=== PATIENT | male | born 1955 | race Caucasian/White ===

== ENCOUNTER 2017-10-07 06:53 | Observation (INO) | payer OTHER ==
[~2017-10-07] VITALS: Ht 185.4 cm; Wt 81.6 kg
--- NOTE | ~2017-10-07 | CATHLAB ---
[facility] [place] [address] INVASIVE PROCEDURE REPORT Name: ILA MORENO Room #: 202-P [facility] IN M.R.#: [id number] Admission: 10/07/17 Attend Phys: Cornel Fernandes, Discharge: 10/08/17 Date of : 51 Date of Service: 10/08/17 1719 Report #: [id number] THIS REPORT FOR: //name// APPROVED REPORT Study performed: 10/07/2017 07:31:46 Patient Details Patient Status: Out-Patient Room #: The patient is a 62 year-old male Event Personnel Cornel Fernandes Spout Tender, Ial Hollis Mahmood, Amber Monitor, Juan Quiroz RN Procedures Performed Art Access - R femoral artery* 74487 Initial Mod Sed Same Phys/QHP Gr5y 645851 88436 Mod Sed Same Phys/QHP Ea 680512 Left Heart Cath w/or w/o Coronaries [id number] [facility] Aortogram Abdominal Peripheral Angio 408172 JESUS Place w/wo Plasty Single LAD 317985 Hemostasis w/ Mynx Indication Positive stress test, Chest pain Procedure Narrative The patient was brought electively to the Cardiac Catheterization Laboratory and was prepped and draped in a sterile manner. The Right Groin^ was infiltrated with 1% Lidocaine subcutaneous anesthesia. A PINNACLE 6FR Sheath #[id number] sheath was inserted into the right femoral artery. Coronary angiography was performed using coronary diagnostic catheters. The right coronary system was accessed and visualized with a JR 4 catheter. The left coronary system was accessed and visualized with a JL 4 catheter. The left ventricle was accessed and visualized with a Pigtail catheter. Left ventriculogram was performed in SANTOYO projection. An aortogram of the abdominal aorta was performed. Closure device was deployed with a 6 Fr Mynx. The patient tolerated the procedure well and there were no complications associated with the procedure. There was no hematoma. Intraoperative Conscious Sedation Sedation start time: 08:14 Case end Time: 09:10 Fentanyl 100 mcg Versed 2 [address] [address] INVASIVE PROCEDURE REPORT Name: ILA MORENO Room #: 202-P [facility]..#: [id number] Admission: 10/07/17 Attend Phys: Cornel Fernandes, Discharge: 10/08/17 Date of : 51 Date of Service: 10/08/17 1719 Report #: [id number] Fluoro Time: 11.36 minutes Dose: DAP 9971.80 cGycm2 1313 mGy Contrast Type and Amount: Omnipaque 225 ml Hemodynamics The aortic pressure is 124/69 mmHg with a mean of 81 mmHg. The left ventricular pressure is 112/9 mmHg with a mean of mmHg. The left ventricular end diastolic pressure is 22 mmHg. PCI Technique Lesion Percutaneous coronary intervention was performed on the mid left anterior descending artery segment. A LAUNCHER 6FR EBU 4 #[id number] Guide Catheter was used to engage the ostium. A Luge Wire .014 x 182CM #[id number] Interventional Guidewire was used to cross the lesion. BALLOON DILATION A Balloon catheter Sprinter OTW 2.75 x 12 #[id number] was inserted and inflated up to 6.00atm for 30seconds. Additional Inflation: 8.00atm for 16seconds. Additional Inflation: 8.00atm for 28seconds. STENT DEPLOYMENT A drug-eluting stent RESOLUTE OTW 3.0 X 18 #[id number] was inserted and inflated up to 16.00atm for 44seconds. POST STENT DEPLOYMENT BALLOON DILATION A Balloon catheter TREK NC RX 3.25 X 15 #[id number] was inserted and inflated up to 18.00atm for 26seconds. Conclusion #1 successful PTCA stent of the proximal LAD subtotal lesion with RONIT grade one flow to RONIT grade 3 placement of a 30 by 18 resolute drug-eluting stent postdilated 3.3 mm in size RONIT-3 flow. (After initial deployment was some residual clot formation postdilated with noncompliant balloon no apparent residual clot) heparin and Integrilin were utilized for anticoagulation #2 left main free of disease giving rise to LAD and circumflex #3 circumflex OM is nondominant with minimal irregularity. Moderate in size #4 dominant RCA minimal disease or is providing collateral filling to the LAD prior to the LAD intervention. #5 normal left ventricular size with subtle anterior apical wall leg EF 50% #6 abdominal aorta is intact without evidence of aneurysm minimal plaquing and mild tortuosity is noted renal arteries and iliac system [facility] [address] [place] [address] INVASIVE PROCEDURE REPORT Name: ILA MORENO Room #: 202-P [facility] IN M.R.#: [id number] Admission: 10/07/17 Attend Phys: Cornel Fernandes, Discharge: 10/08/17 Date of : 51 Date of Service: 10/08/171718 Report #: [id number] widely patent Recommendations and plan: We'll proceed to the CCU patient is able medically stable and pain-free. Integrilin drip will be maintained. Although no evidence of residual clot after postdilatation with noncompliant balloon. Hemodynamically stable. Proceed to CCU follow stent protocol dual antiplatelet therapy at least one year. No MRI or dental work for 3 months <ELECTRONICALLY SIGNED> By: Cornel Fernandes MD, [facility] WITH [facility] 10/08/171718 18 18 Cornel Fernandes MD, FACC /INF
--- NOTE | ~2017-10-07 | EKG ---
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 : 1955 Requested By: Cornel Fernandes Order Number: [id number] MD: Jose M Meredith Measurements Intervals [place] Rate: 60 P: 32 MS: 207 QRS: 14 QRSD: 98 T: 60 QT: 432 QTc: 432 Interpretive Statements Sinus rhythm Abnrm T, consider ischemia, anterolateral lds Compared to ECG 10/07/2017 13:55:04 T-wave abnormality is more pronounced Electronically Signed On 10-08-2017 8:18:31 CDT by Jose M Meredith [email or web address] <ELECTRONICALLY SIGNED> By: Jose M Meredith MD, [facility] 10/08/17817 1 1 Jose M Meredith MD, [facility] /EPI
--- NOTE | ~2017-10-07 | EKG ---
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 : 1955 Requested By: Cornel Fernandes Order Number: [id number] MD: Jose M Meredith Measurements Intervals [place] Rate: 64 P: -5 OK: 209 QRS: -1 QRSD: 92 T: 46 QT: 432 QTc: 446 Interpretive Statements Sinus rhythm Abnormal T, consider ischemia, anterior leads No previous ECG available for comparison Electronically Signed On 10-07-2017 17:22:27 CDT by Jose M Meredith [email or web address] <ELECTRONICALLY SIGNED> By: Jose M Meredith MD, [facility] 10/07/17 1722 1355 1355 Jose M Meredith MD, [facility] /EPI
[2017-10-07 07:10] VITALS: BP 117/82
[2017-10-07] MEDS ORDERED: ALTACE10 MG PO (07:29)
[2017-10-07] MEDS ORDERED: LIVALO4 MG PO (07:29)
[2017-10-07] MEDS ORDERED: ASPIRIN325 PO (07:30)
[2017-10-07] MEDS ORDERED: ACETYL L-CARNI500 MG PO (07:31)
[2017-10-07] MEDS ORDERED: ALPHA LIPOIC A300 MG PO (07:32)
[2017-10-07] MEDS ORDERED: VITAMIN D2000 UNIT PO (07:33)
[2017-10-07] MEDS ORDERED: COQ-10100 MG PO (07:34)
[2017-10-07] MEDS ORDERED: FISH OIL 1,001000 M2 PO (07:34)
[2017-10-07] MEDS ORDERED: VITAMIN B-12500 MCG PO (07:35)
[2017-10-07 07:40] LABS: HEMOGLOBIN 14.9 gm/dL (14.0-18.0); MCHC 35.5 g/dL (28.0-37.0); MCV 90.2 fL (80.0-100.0); RBC 4.66 mil/uL (4.50-6.00); RDW 12.1 % (10.5-14.5)
[2017-10-07 07:49] LABS: CALCIUM 8.4 mg/dL (8.5-10.1)
[2017-10-07 12:06] VITALS: BP 123/72
[2017-10-07 15:18] VITALS: BP 100/73
[2017-10-07 19:08] VITALS: BP 109/78
[2017-10-08 04:19] VITALS: BP 111/76
[2017-10-08 04:39] LABS: CALCIUM 8.2 mg/dL (8.5-10.1); CREATININE 0.7 mg/dL (0.7-1.3); POTASSIUM 3.7 mmol/L (3.5-5.1)
[2017-10-08 04:45] LABS: TROPONIN-I 0.94 ng/mL (<0.06)
[2017-10-08 05:44] LABS: HEMATOCRIT 39.9 % (42.0-52.0); HEMOGLOBIN 13.8 gm/dL (14.0-18.0); MCH 31.9 pg (26.0-34.0); MCHC 34.6 g/dL (28.0-37.0); MCV 92.1 fL (80.0-100.0); RBC 4.33 mil/uL (4.50-6.00); RDW 12.6 % (10.5-14.5); WBC 5.5 thou/uL (4.0-11.0)
[2017-10-08] MEDS ORDERED: EFFIENT10 MG PO (07:36)
[2017-10-08] MEDS ORDERED: ASPIRIN325 PO (07:36)
[2017-10-08] MEDS ORDERED: METOPROLOL SUCC25 M1 PO (07:39)
[2017-10-08 08:36] VITALS: BP 112/69
[2017-10-08 08:39] VITALS: BP 112/69
== END 2017-10-08 09:15 | disposition home or self-care (01) ==
LOC: CATH 06:53 → 2N 12:14 → ENTRNSPT 10-08 08:50 → EDTRNSPTSTS 10-08 08:52 → 2N 10-08 09:15
PROVIDERS: Internal Medicine Cardiovascular Disease
DX: I25.10 Atherosclerotic heart disease of native coronary artery without angina pectoris (principal); I10 Essential (primary) hypertension; E78.5 Hyperlipidemia, unspecified; Z95.5 Presence of coronary angioplasty implant and graft; Z95.2 Presence of prosthetic heart valve

== ENCOUNTER → 2019-08-16 | Outpatient (CLI) | payer OTHER ==
[~2019-08-16] MED LIST: ACETYL L-CARNI500 MG PO; ALPHA LIPOIC A300 MG PO; ALTACE10 MG PO; ASPIRIN325 PO; COQ-10100 MG PO; EFFIENT10 MG PO; FISH OIL 1,001000 M2 PO; LIVALO4 MG PO; METOPROLOL SUCC25 M1 PO; VITAMIN B-12500 MCG PO; VITAMIN D2000 UNIT PO
== END ==
LOC: SJCVC 16:17
DX: I45.10 Unspecified right bundle-branch block (principal); R94.31 Abnormal electrocardiogram [ECG] [EKG]; I25.10 Atherosclerotic heart disease of native coronary artery without angina pectoris; I48.92 Unspecified atrial flutter; R00.0 Tachycardia, unspecified; I10 Essential (primary) hypertension; E78.00 Pure hypercholesterolemia, unspecified; Z98.890 Other specified postprocedural states; Z82.49 Family history of ischemic heart disease and other diseases of the circulatory system; Z79.899 Other long term (current) drug therapy

== ENCOUNTER → 2019-09-06 | Outpatient (CLI) | payer OTHER | LOC: SJCVCIMAG 09:39 | DX: I08.3 Combined rheumatic disorders of mitral, aortic and tricuspid valves (principal); I25.10 Atherosclerotic heart disease of native coronary artery without angina pectoris; I48.92 Unspecified atrial flutter; I47.1 Supraventricular tachycardia; I10 Essential (primary) hypertension; E78.5 Hyperlipidemia, unspecified; E78.00 Pure hypercholesterolemia, unspecified; Z82.49 Family history of ischemic heart disease and other diseases of the circulatory system; Z79.899 Other long term (current) drug therapy; Z98.890 Other specified postprocedural states ==